=== PATIENT | male | born 1970 | race Caucasian/White ===

== ENCOUNTER 2018-10-30 14:40 | Emergency (ER) | payer BC ==
[2018-10-30 15:21] LABS: #Basophils 0.1 thou/uL (0.0-0.2); #Eosinphils 0.1 thou/uL (0.0-0.7); #Lymphocytes 3.1 thou/uL (1.20-3.40); #Monocytes 0.6 thou/uL (0.11-0.59); #Neutrophils 5.6 thou/uL (1.40-6.50); %Basophils 0.6 % (0.0-1.0); %Eosinophils 0.9 % (0.0-10.0); %Lymphocytes 32.5 % (21.0-51.0); %Monocytes 6.7 % (0.0-10.0); %Neutrophils 59.3 % (42.0-75.0); Hemoglobin 14.8 g/dL (14.0-18.0); Mean Corpuscular HGB CONC 35.2 g/dL (32.0-36.0); Mean Corpuscular Hemoglobin 34.1 pg (27.0-31.0); Mean Corpuscular Volume 96.7 fL (78.0-98.0); Mean Platelet Volume 8.3 fL (7.4-10.4); Platelet Count 271 thou/uL (130-400); RBC Distribution Width 11.6 % (11.5-14.5); Red Blood Cell (RBC) Count 4.35 mill/uL (4.70-6.10); White Blood Cell (WBC) Count 9.4 thou/uL (4.8-10.8)
[2018-10-30 15:45] LABS: ALT (SGPT) 55 U/L (8-55); AST (SGOT) 38 U/L (5-34); Albumin 4.6 g/dL (3.5-5.0); Alkaline Phosphatase 90 U/L (40-150); Anion Gap 18 mmol/L (10-20); BUN (Urea Nitrogen) 8 mg/dL (8.9-20.6); Bilirubin, Total 0.7 mg/dL (0.2-1.2); Calc. Creatinine Clearance 0 mL/min (70-130); Calcium 9.8 mg/dL (7.8-10.44); Carbon Dioxide 21 mmol/L (22-29); Chloride 105 mmol/L (98-107); Estimated GFR-MDRD 63; Globulin 3.4 g/dL (2.4-3.5); Glucose 106 mg/dL (70-105); Lipase 110 U/L (8-78); Potassium 3.5 mmol/L (3.5-5.1); Sodium 140 mmol/L (136-145)
--- NOTE | 2018-10-30 16:36 | CT ---
CT Stone Protocol History: Abdominal pain Comparison: None. Findings: Lung bases are clear. No pericardial effusion. Mild right-sided hydronephrosis and proximal hydroureter due to a partially obstructing 2 x 4 mm calc ulus within the proximal ureter 3 cm from the ureteropelvic junction. Punctate right interpolar 1 mm calculus. Within the inferior left renal collecting system is a calculus which has casting of the inferior calyx measuring 5 x 4 x 7 mm. Smaller adjacent punctate 1 mm calculus is present. Interpolar 1 mm calculus is present. No left ureteral calculus. No dilated loops of large or small bowel. The appendix is visualized and is normal. Aortoiliac contour is nonaneurysmal. Small fat-containing left inguinal hernia. Impression: Mild right hydroureteronephrosis due to a small partially obstructive 2 x 4 mm calculus p roximal right ureter 3 cm distal to the ureteropelvic junction.
[2018-10-30 17:08] LABS: Bilirubin Negative (Negative); Blood, Urine Moderate (Negative); Glucose, Urine (Dipstick) Negative (Negative); Leukocyte Negative (Negative); Nitrite Negative (Negative); Protein, Urine (Dipstick) 30 mg/dL (Neg-Trace); Urobilinogen 0.2 mg/dL (Less than 2)
[2018-10-30 17:21] LABS: Clarity Clear (Clear)
[2018-10-30 17:32] LABS: Bacteria/HPF None Seen HPF (None Seen); RBC/HPF Greater than 50 HPF (0-3); Squamous Epithelial 0-3 HPF (0-3); WBC/HPF 0-3 HPF (0-3)
== END 2018-10-30 17:58 | disposition home or self-care (01) ==
LOC: ERS 14:40
DX: N13.2 Hydronephrosis with renal and ureteral calculous obstruction (principal)
CPT/HCPCS: 36415; 74176; 80053; 81003; 83690; 85025

== ENCOUNTER 2022-03-20 00:57 | Emergency (ER) | payer BC, SELFPAY | END 2022-03-20 01:30 | disposition left against medical advice (07) | LOC: ERS 00:57 | DX: Z53.21 Procedure and treatment not carried out due to patient leaving prior to being seen by health care provider (principal) ==